=== PATIENT | male | born 2005 | race Caucasian/White ===

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

== ENCOUNTER 2024-06-03 20:05 | Emergency (ER) | payer SELFPAY ==
[2024-06-03 20:36] VITALS: BP 140/89; PULSE 89
[2024-06-03] MEDS: Silver Sulfadiazine 1% Crm 50 GM Tube TOP SCH (21:15)
== END 2024-06-03 21:20 | disposition home or self-care (01) ==
LOC: JP.ED 20:05
DX: T22.212A Burn of second degree of left forearm, initial encounter (principal); T31.0 Burns involving less than 10% of body surface; F17.210 Nicotine dependence, cigarettes, uncomplicated; Z88.0 Allergy status to penicillin; X08.8XXA Exposure to other specified smoke, fire and flames, initial encounter
CPT/HCPCS: 16020; 99283; A9270